=== PATIENT | male | born 1995 | race Caucasian/White ===

== ENCOUNTER 2023-12-30 19:11 | Emergency (ER) | payer SELFPAY ==
[~2023-12-30] VITALS: Ht 175.3 cm; Wt 69.0 kg
[2023-12-30 19:43] VITALS: O2SAT 100
[2023-12-30 20:42] LABS: BASOPHILS % 0.4 % (0.0-2.0); EOSINOPHILS % 1.3 % (0.0-5.0); HEMATOCRIT. 43.1 % (42.0-52.0); HEMOGLOBIN. 14.8 g/dL (14.0-18.0); LYMPHOCYTES % 28.5 % (20.0-50.0); MEAN CORPUSCULAR HEMOGLOBIN 31.3 pg (28.0-32.0); MEAN CORPUSCULAR HGB CONC 34.3 g/dL (31.0-37.0); MEAN CORPUSCULAR VOLUME 91.2 fL (80.0-94.0); MEAN PLATELET VOLUME 8.3 fl (7.4-10.4); MONOCYTES % 5.6 % (2.0-8.0); NEUTROPHILS % 64.2 % (40.0-76.0); PLATELET 227 x1000/uL (130-400); RED BLOOD CELL COUNT 4.73 mill/uL (4.7-6.1); RED CELL DISTRIBUTION WIDTH 13.2 % (11.6-14.6); WHITE BLOOD COUNT 8.6 x1000/uL (4.5-11.0)
[2023-12-30 20:46] LABS: CHLORIDE 107 mEq/L (98-107); POTASSIUM 3.9 mEq/L (3.5-5.1); SODIUM 142 mEq/L (136-145)
[2023-12-30 20:47] LABS: CARBON DIOXIDE 30 mEq/L (21-32)
[2023-12-30 20:48] LABS: CALCIUM 9.9 mg/dL (8.7-10.4)
[2023-12-30 20:52] LABS: CREATININE 0.8 mg/dL (0.6-1.3); GLUCOSE 125 mg/dL (70-105)
[2023-12-30 20:53] LABS: UREA NITROGEN BLOOD 11 mg/dL (9-23)
[2023-12-30] MEDS ORDERED: HYDR-459 MT (21:41)
[2023-12-30 21:46] LABS: THYROID STIMULATING HORMONE 2.49 uIU/mL (0.55-4.78)
[2023-12-30 21:47] LABS: T4 FREE 1.31 ng/dL (0.89-1.76)
[2023-12-30 22:03] VITALS: BP 136/67; PULSE 72; RESP 18; TEMP 37.11408; O2SAT 100
== END 2023-12-30 22:04 | disposition home or self-care (01) ==
LOC: ER 19:11
DX: R00.2 Palpitations (principal); F41.9 Anxiety disorder, unspecified
CPT/HCPCS: 36415; 71045; 80048; 84439; 84443; 85025; 99284